=== PATIENT | male | born 1940 | race Caucasian/White ===

== ENCOUNTER → 2018-07-19 | Outpatient (CLI) | payer OTHER | LOC: EMCIMAGING 12:51 | PROVIDERS: ATTEND Physician Assistant Medical | DX: M51.36 Other intervertebral disc degeneration, lumbar region (principal); M48.061 Spinal stenosis, lumbar region without neurogenic claudication; M99.73 Connective tissue and disc stenosis of intervertebral foramina of lumbar region | CPT/HCPCS: 72148-PN ==

== ENCOUNTER → 2018-07-28 | Day surgery (SDC) | payer OTHER ==
[~2018-07-28] MED LIST: ALTEPLASE 2 MG VIAL IVP PRN; FLUMAZENIL 0.5 MG/5 ML MDV IVP PRN; GLUCAGON HCL 1 MG VIAL IVP PRN; HEPARIN 10,000 UNIT/10 ML MDV (1,000 UNIT/ML) IVP PRN; IOPAMIDOL (ISOVUE-300) 100 ML BTL ONE; LIDOCAINE 1% 2 ML INJ ID PRN; LR 1,000 ML IV ONE; MEPERIDINE 25 MG/ML SYR IVP PRN; MIDAZOLAM 2 MG/2 ML VIAL IVP PRN; NALOXONE HCL 0.4 MG/ML INJ IVP PRN; NS 1,000 ML IV SCH; ONDANSETRON 4 MG/2 ML VIAL IVP ONE; ONDANSETRON 4 MG/2 ML VIAL IVP PRN; ONDANSETRON 4 MG/2 ML VIAL ONE; OXYCODONE/APAP 5/325 TAB PO PRN; PROTAMINE SULFATE 50 MG/5 ML VIAL IVP PRN; fentaNYL 100 MCG/2 ML INJ IVP PRN
--- NOTE | 2018-07-28 07:39 | PDHPUP ---
History & Physical Update H&P update statement: This history and physical update is based on an assessment of the patient which was completed after admission or registration (within 24 hours), but prior to the surgery/procedure. H&P update: H&P reviewed & patient examined, no change in patient's condition since H&P completed
--- NOTE | 2018-07-28 07:40 | PDPROPOC ---
Sedation Plan of Care Sedation Plan of Care: vital signs stable, mental status noted, patient educated of risks, benefits, alternatives, patient can tolerate sedation ASA Classification: ASA 2 Planned drugs: fentanyl, midazolam Mallampati Score: Class 2 Mallampati Reference Image: Patient passed 3-3-2 rule?: Yes
[2018-07-28 08:52] VITALS: BP 132/65
--- NOTE | 2018-07-28 09:03 | PDCONSULT ---
Laundry Laborer Note: NEUROENDOVASCULAR resting well, no new events CNII-XII grossly normal, speech fluent strength full, no drift sensation intact groin site c/d/i, no hematoma, distal pulses palpable s/p 6 vessel diagnostic cerebral angiogram, no obvious pathology to explain pulsatile tinnitus - doing well - flat for 3 hours - regular diet - d/c home after ambulatory [facility]
== END | disposition home or self-care (01) ==
LOC: FSGY 06:05
PROVIDERS: ATTEND Neurological Surgery
DX: H93.A2 Pulsatile tinnitus, left ear (principal)
CPT/HCPCS: 99152; C1769; C1894; C1760; J1644; J2250; J2310; J2405; J3010; Q9967